=== PATIENT | male | born 1970 | race Caucasian/White ===

== ENCOUNTER 2022-06-16 19:38 | Outpatient (CLI) | payer BC, SELFPAY ==
--- NOTE | 2022-06-23 09:46 | P.SLS_ITS ---
Sleep Study Details Details Interpreting Provider: Ulices Avila MD Date of Sleep Study: 06/16/22 Sleep Study Details: STUDY TYPE:? Home ? BMI:? 27.6 ORDERING PROVIDER:? Rocio INDICATION:? Concerns about sleep apnea ? SLEEP SUMMARY:? 435.5 minutes of monitoring time RESPIRATORY SUMMARY:? AHI is 1.9, supine AHI is 4.1. Low oxygen was 88 5.2% of study oxygen was less than 90% Snoring 26.2% of the study PERIODIC LIMB MOVEMENTS OF SLEEP:? Not recorded CARDIAC:? 4521, mean 65.5 beats per minute IMPRESSION:? This study does not demonstrate clinically significant obstructive sleep apnea. However hypo oxygenation was noted during 5.2% of the study patient's oxygen level was less than 90%. RECOMMENDATION: If sleep disorder is strongly suspected would recommend an in- lab study. Would also recommend an overnight oximetry if hospital-based study is not performed to confirm the hypo oxygenation noted during the study.
== END 2022-06-16 19:39 | disposition home or self-care (01) ==
LOC: SLEEP 19:39
PROVIDERS: Visit Provider Otolaryngology
DX: G47.33 Obstructive sleep apnea (adult) (pediatric) (principal)
CPT/HCPCS: 95806

== ENCOUNTER 2024-09-25 06:05 | Day surgery (SDC) | payer BC, SELFPAY ==
[2024-09-25 06:15] VITALS: BMI 29.3
[2024-09-25 06:23] VITALS: BP 162/101; PULSE 63; RESP 16; TEMP 36.6; O2SAT 98
[2024-09-25] MEDS: SODIUM CHLORIDE 0.9 % (FLUSH) 10 ML SYRINGE IVF (06:24)
--- NOTE | 2024-09-25 07:15 | CRLHL7_ITS ---
For Patients: As a result of the Cures Act, medical imaging exams and procedure reports are released immediately into your electronic medical record. You may view this report before your referring provider. If you have questions, please contact your health care provider. INDICATION: Right 1st MTP joint fusion TECHNIQUE: C-arm fluoroscopy for right 1st MTP joint fusion. Two C-arm spot images were obtained. Fluoroscopy time was 8.9 seconds. COMPARISON: None. FINDINGS: C-arm fluoroscopy for right 1st MTP joint fusion. IMPRESSION: C-arm fluoroscopy for right 1st MTP joint fusion. Dictated by Jayson Fajardo MD @ 09/25/2024 9:49:32 AM (Electronically Signed)
[2024-09-25] MEDS: BUPIVACAINE 0.25% 30 ML INJECTION (07:20)
[2024-09-25] MEDS: CEFAZOLIN 2 GM INJ IVP (07:20)
[2024-09-25 08:40] VITALS: BP 111/73; PULSE 65; RESP 16; TEMP 36.8; O2SAT 95
--- NOTE | 2024-09-25 08:44 | W.PM.PODPROC ---
Date of Procedure: 09/25/24 Surgeon: Emre Hutchins DPM Pre-op Diagnosis: Hallux rigidus right Post-op Diagnosis: Hallux rigidus right Type of Procedure: 1st MPJ fusion right Indications: Patient is in clinic for ongoing arthritic 1st MPJ. He has failed nonsurgical care today did like to proceed with surgical intervention. I reviewed the procedure, recovery, expectation potential complications. These include but are not limited to: Poor wound healing, infection, under correction, over correction, nonunion, delayed union, malunion, nerve irritation or injury, hardware irritation or failure, continued pain, potentially future surgery, complex regional pain syndrome, deep venous thrombosis, pulmonary embolism possible . He understands risks and written consent was obtained. Site was marked. Procedure Description: Patient brought the operating room placed supine position on operating table. IV sedation was initiated local anesthetic injected into the right foot. He was prepped and draped in sterile fashion. Standard time-out protocol followed. The right foot was exsanguinated and the tourniquet inflated. Linear incisions made over the 1st metatarsophalangeal joint. Incision was carried down through skin subcutaneous tissues. Linear periosteal and capsular tissue was made. The tissues were reflected away from the head of the 1st metatarsal and base of the proximal phalanx. Significant amount of bony spurring was noted this was removed with a rongeur. There was severe loss of cartilage from both the 1st metatarsal head and proximal phalangeal base. Guide pin was placed in the 1st metatarsal head and a 22 mm Reamer was used to remove the remaining cartilage and subchondral bone. Guide pin was removed and placed in the base of proximal phalanx. Corresponding 22 mm Reamer was used to remove the remaining cartilage and subchondral bone. Guide pin was removed and the wound was irrigated normal sterile saline. Opposing fusion surfaces were fenestrated with a K-wire. Weightbearing was simulated with a metal lid and the great toe was positioned optimally. Guide pin was placed. C-arm confirmed position. 3.0 mm cannulated headless screw was then placed from distal medial to proximal lateral across the fusion site. Excellent compression noted. Rotary bur was used to remodel the dorsal aspect of the fusion site and a 7 hole 1st MPJ fusion plate was applied dorsally. Three 3.0 mm cortical locking screws were placed distally and two 3.0 mm cannulated locking screws were placed proximally. Additional 3.0 mm nonlocking screw was placed proximal. Fusion site was remodeled with a rotary bur. Wound was irrigated normal sterile saline. C-arm confirmed excellent position of all hardware and fusion site. Capsular tissue was remodeled and repaired with 3-0 Vicryl. Subcutaneous tissues reapproximated 4-0 Monocryl and skin closed with 4-0 Prolene. Sterile dressing was then applied. Tourniquet was released and normal capillary fill time returned all digits. Patient was transferred from OR to same-day surgery with vital signs stable and vascular status intact. He is given both written and verbal postoperative instructions. He is given oxycodone for pain. Follow up in clinic in 2 days. Complications: None apparent. Anesthesia: MAC and local Hemostasis: ankle Estimated blood loss (mL): 2 Implants: [employer] 1st MPJ fusion plate x1, 3.0 mm cortical locking screws times 5, 3.0 mm cortical nonlocking screw x 1, 3.0 mm cannulated headless screw x1. Specimens: none sent Disposition: same day
[2024-09-25 08:45] VITALS: BP 100/86; PULSE 68; RESP 16; O2SAT 95
--- NOTE | 2024-09-25 08:46 | W.ANESCHARGE ---
Anesthesia Charges Start Date/Time Anesthesia Start Date: 09/25/24 Anesthesia Start Time: 07:14 Stop Date/Time Anesthesia Stop Date: 09/25/24 Anesthesia Stop Time: 08:43
[2024-09-25 09:00] VITALS: BP 132/76; PULSE 57; RESP 16; O2SAT 97
[2024-09-25 09:15] VITALS: BP 120/71; PULSE 49; RESP 16; O2SAT 99
[2024-09-25 09:30] VITALS: BP 100/50; PULSE 48; RESP 16; O2SAT 98
--- NOTE | 2024-09-25 10:00 | REH.PT ---
Pt is s/p Right 1st MPJ fusion. Pt was fitted for crutches and issued for home use. Instructed pt in gt level surfaces with 2 crutches, basic transfers and verbally instructed in stairs sequence and car transfers. Able to demo ind gait with crutches both NWB and heel touch wt bearing. Goals of PT were met. WALLY.
== END 2024-09-25 10:12 | disposition home or self-care (01) ==
LOC: OR 06:07
PROVIDERS: Visit Provider Podiatrist
PROC: (CPT 28740; principal; 2024-09-25 07:15)
DX: M20.21 Hallux rigidus, right foot (principal)
CPT/HCPCS: 28289; 01480; 73620; 76000; A4580; C1713; J0665; J0690; J2250; J2704; J3010